=== PATIENT | female | born 1955 | race Caucasian/White ===

== ENCOUNTER 2018-08-21 08:42 | Outpatient (CLI) | payer BC ==
--- NOTE | 2018-08-21 09:44 | MMO ---
Bilateral MAMMO Bilat Screen [facility]. CLINICAL HISTORY: Patient is 62 years old and is seen for screening. The patient has no family history of breast cancer. The patient has a history of malignant (generic) in the left breast at age 52. The patient has a history of right Breast reduction in 2008. VIEWS: The views performed were: right craniocaudal and right mediolateral oblique. FILMS COMPARED: The present examination has been compared to prior imaging studies performed at [facility] on 09/13/2014 and 10/24/2015, and at [facility] on 01/13/2013. This study has been interpreted with the assistance of computer-aided detection. MAMMOGRAM FINDINGS: The breasts are heterogeneously dense, which could obscure a lesion on mammography. There are stable benign appearing calcifications seen in the right breast. There are no suspicious masses, suspicious calcifications, or new areas of architectural distortion. IMPRESSION: THERE IS NO MAMMOGRAPHIC EVIDENCE OF MALIGNANCY. A ROUTINE FOLLOW-UP MAMMOGRAM IN 1 YEAR IS RECOMMENDED. ACR BI-RADS Category 2 - Benign finding MAMMOGRAPHY NOTE: 1. A negative mammogram report should not delay a biopsy if a dominant of clinically suspicious mass is present. 2. Approximately 10% to 15% of breast cancers are not detected by mammography. 3. Adenosis and dense breasts may obscure an underlying neoplasm.
== END 2018-08-21 08:43 | disposition home or self-care (01) ==
LOC: SCSMAMMO 08:42
PROVIDERS: ATTEND Obstetrics & Gynecology
DX: Z12.31 Encounter for screening mammogram for malignant neoplasm of breast (principal); Z85.3 Personal history of malignant neoplasm of breast; Z98.890 Other specified postprocedural states
CPT/HCPCS: 77067

== ENCOUNTER 2019-04-21 05:29 | Observation (INO) | payer BC ==
[2019-04-21 06:05] LABS: #Basophils 0.1 thou/uL (0.0-0.2); #Eosinphils 0.2 thou/uL (0.0-0.7); #Lymphocytes 1.4 thou/uL (1.20-3.40); #Monocytes 0.4 thou/uL (0.11-0.59); #Neutrophils 6.7 thou/uL (1.40-6.50); %Basophils 0.6 % (0.0-1.0); %Eosinophils 2.6 % (0.0-10.0); %Monocytes 4.4 % (0.0-10.0); %Neutrophils 76.4 % (42.0-75.0); Hemoglobin 13.8 g/dL (12.0-16.0); Mean Corpuscular HGB CONC 33.8 g/dL (32.0-36.0); Mean Corpuscular Hemoglobin 33.3 pg (27.0-31.0); Mean Corpuscular Volume 98.5 fL (78.0-98.0); Mean Platelet Volume 7.3 fL (7.4-10.4); Platelet Count 234 thou/uL (130-400); RBC Distribution Width 11.2 % (11.5-14.5); Red Blood Cell (RBC) Count 4.14 mill/uL (4.20-5.40); White Blood Cell (WBC) Count 8.8 thou/uL (4.8-10.8)
[2019-04-21] MEDS ORDERED: Nitroglycerin 2% Ointment 1 INCH/1 GM Packet ONE (06:07)
[2019-04-21 06:28] LABS: ALT (SGPT) 10 U/L (8-55); AST (SGOT) 12 U/L (5-34); Albumin 4.4 g/dL (3.4-4.8); Alkaline Phosphatase 56 U/L (40-110); Anion Gap 13 mmol/L (10-20); BUN (Urea Nitrogen) 9 mg/dL (9.8-20.1); Bilirubin, Total 0.6 mg/dL (0.2-1.2); CK (CPK) 64 U/L (29-168); Calc. Creatinine Clearance 0 mL/min (70-130); Calcium 9.3 mg/dL (7.8-10.44); Carbon Dioxide 25 mmol/L (23-31); Chloride 109 mmol/L (98-107); Estimated GFR-MDRD 70; Glucose 109 mg/dL (80-115); Lipase 27 U/L (8-78); Potassium 4.1 mmol/L (3.5-5.1); Protein, Total 6.4 g/dL (6.0-8.3); Sodium 143 mmol/L (136-145)
--- NOTE | 2019-04-21 08:43 | RAD ---
CHEST 1 VIEW: HISTORY: Midsternal chest pain. COMPARISON: 05/19/2017. FINDINGS: There are some postoperative changes and minimal overall increased density in the left chest wall and overlying the left chest. Heart size is normal. The lungs are clear. IMPRESSION: No significant acute intrathoracic disease. No pneumonia, edema, or pleural effusion. POS: [facility]
[2019-04-21 09:13] LABS: Troponin I 0.014 ng/mL (< 0.028)
[2019-04-21] MEDS ORDERED: Acetaminophen 325 MG TAB PO PRN (09:18)
[2019-04-21] MEDS ORDERED: Nitroglycerin 0.4 MG TAB (25 Tab Bottle) PO PRN (09:43)
--- NOTE | 2019-04-21 09:58 | PDOC.HHP ---
Hospitalist HPI - History of Present Illness Chest pain History of Present Illness: PCP: Shannan Kincaid [facility] The patient is a 63/F with PMH significant for HTN, HLD, COPD, smoker and panic attacks that presents to the ER for the above complaint. Patient reports waking up to chest pain at 0300, located left chest, non radiating, describes as pressure, grade 2/10. Exacerbated by nothing, relieved by nothing. Reports associated SOB, light headedness and nausea. She said that this felt different than her typical panic attacks. She took ASA 325mg and called EMS. EMS administered Nitro SL x 2 which relieved her chest pain. She was brought to the ER. ED Course: EKG NSR with some ST and T wave abnormalities Trop negative CXR negative BNP 58.4 Given Nitropaste 1 inch chest wall Hospitalist ROS - Review of Systems Constitutional: denies: fever, chills, sweats, weakness, malaise, other Eyes: denies: pain, vision change, conjunctivae inflammation, eyelid inflammation, redness, other ENT: denies: ear pain, ear discharge, nose pain, nose discharge, nose congestion , mouth pain, mouth swelling, throat pain, throat swelling, other Respiratory: reports: shortness of breath. denies: cough, hemoptysis, sputum, wheezing Cardiovascular: reports: chest pain, light headedness. denies: palpitations, orthopnea, paroxysmal noc. dyspnea, edema Gastrointestinal: reports: nausea. denies: vomiting, abdominal pain, diarrhea Genitourinary: denies: dysuria, frequency, hematuria Skin: denies: rash, bruising Neurological: denies: weakness, numbness, incoordination, change in speech, confusion Hospitalist History - Past Medical History Source: patient Cardiac: reports: HTN, Hyperlipidemia Pulmonary: reports: COPD [employer]ER: reports: no pertinent history Gastrointestinal: reports: no pertinent history Heme/Onc: reports: no pertinent history Hepatobiliary: reports: no pertinent history Psych: reports: Anxiety (panic attacks) Musculoskeletal: reports: no pertinent history Rheumatologic: reports: no pertinent history Infectious Disease: reports: no pertinent history ENT: reports: no pertinent history Renal/: reports: no pertinent history Endocrine: reports: no pertinent history Dermatology: reports: no pertinent history - Past Surgical History Other Surgical History: Bilateral knee surgery, Back surgery x 2, hysterectomy, left mastectomy, tonsillectomy, tubal ligation. - Family History Family History: reports: cancer, diabetes mellitus, respiratory disorder - Social History Smoking Status: Current every day smoker Tobacco Type: cigarettes (1ppd > 40 years) Alcohol: reports: Heavy (Tori, 5 drinks per day) Drugs: reports: marijuana (occassionally) Living Situation: With Family (lives with father) Activity level: independent ambulation - Exam General Appearance: NAD, awake alert Neck: supple, no JVD, no thyromegaly, no lymphadenopathy Heart: RRR, no murmur, no gallops, no rubs, normal peripheral pulses Respiratory: CTAB, no wheezes, no rales, no ronchi Gastrointestinal: soft, non-tender, non-distended, normal bowel sounds, no guarding, no rigidity Extremities: no cyanosis, no clubbing, no edema Neurological: no focal deficits Musculoskeletal: normal tone, normal strength Psychiatric: normal affect, A&O x 3 Hospitalist Results - Labs Result Diagrams: 04/21/19 05:58 04/21/19 05:58 Lab results: WBC 8.8 thou/uL (4.8-10.8) 04/21/19 05:58 Hgb 13.8 g/dL (12.0-16.0) 04/21/19 05:58 Hct 40.8 % (36.0-47.0) 04/21/19 05:58 MCV 98.5 fL (78.0-98.0) H 04/21/19 05:58 Plt Count 234 thou/uL (130-400) 04/21/19 05:58 Neutrophils % 76.4 % (42.0-75.0) H 04/21/19 05:58 Sodium 143 mmol/L (136-145) 04/21/19 05:58 Potassium 4.1 mmol/L (3.5-5.1) 04/21/19 05:58 Chloride 109 mmol/L (98-107) H 04/21/19 05:58 Carbon Dioxide 25 mmol/L (23-31) 04/21/19 05:58 BUN 9 mg/dL (9.8-20.1) L 04/21/19 05:58 Creatinine 0.83 mg/dL (0.6-1.1) 04/21/19 05:58 Glucose 109 mg/dL (80-115) 04/21/19 05:58 Calcium 9.3 mg/dL (7.8-10.44) 04/21/19 05:58 Total Bilirubin 0.6 mg/dL (0.2-1.2) 04/21/19 05:58 AST 12 U/L (5-34) 04/21/19 05:58 ALT 10 U/L (8-55) 04/21/19 05:58 Alkaline Phosphatase 56 U/L (40-110) 04/21/19 05:58 Creatine Kinase 64 U/L (29-168) 04/21/19 05:58 Troponin I 0.014 ng/mL (< 0.028) 04/21/19 08:35 B-Natriuretic Peptide 58.4 pg/mL (0-100) 04/21/19 05:58 Serum Total Protein 6.4 g/dL (6.0-8.3) 04/21/19 05:58 Albumin 4.4 g/dL (3.4-4.8) 04/21/19 05:58 Lipase 27 U/L (8-78) 04/21/19 05:58 Laboratory Tests 04/21/19 04/21/19 04/21/19 05:58 05:58 08:35 Troponin I Less than 0.010 0.014 B-Natriuretic Peptide 58.4 - EKG Interpretation EKG: NSR with non specific ST and T wave abnormalities - Radiology Interpretation Chest x-ray Status: report reviewed by me Hospitalist H&P A/P - Plan Plan: Impression: Chest pain, r/o ACS HTN, chronic HLD, chronic Tobacco abuse COPD, chonic Anxiety, chronic 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
[2019-04-21 11:33] LABS: Cardiac Risk 3.1 (Less than 4.5)
[2019-04-21 12:34] LABS: Troponin I Less than 0.010 ng/mL (< 0.028)
[2019-04-21] MEDS ORDERED: Nitroglycerin 2% Ointment 1 INCH/1 GM Packet TOP SCH (14:00)
[2019-04-21 16:10] VITALS: BP 178/90; TEMP 98.2; BMI 23.9
--- NOTE | 2019-04-21 16:31 | NM ---
EXAM: NUCLEAR MEDICINE CARDIAC SPECT WITH EF AND WALL MOTION: 04/21/19 HISTORY: Chest pain. COPD. Hypertension. Dyslipidemia. Smoking history. Exercise Sestamibi study is performed. Patient was injected with 28.9 millicuries technetium 99m Sest amibi intravenously for stress images and 9.1 millicuries technetium 99m Sestamibi intravenously for resting images. Multiple SPECT images in the short axis, vertical long axis, and horizontal long axis demonstrates no scan evidence for infarct or ischemia. TID 0.92. LHR 0.43. EDV 76 mL. EF 76%. MYOCARDIAL PERFUSION WALL MOTION: Wall motion is normal. IMPRESSION: Normal cardiac SPECT with EF and wall motion. POS: [facility]
--- NOTE | 2019-04-21 18:40 | DIS ---
DATE OF ADMISSION: 04/21/2019 DATE OF DISCHARGE: 04/21/2019 PRIMARY CARE PROVIDER: Unknown. DISCHARGE DISPOSITION AND FOLLOWUP: The patient will be discharged home and follow up with primary care provider in 1 week. The patient was seen and examined on the day of discharge. Denies any new complaints. INPATIENT CONSULTATIONS: None. BRIEF CLINICAL COURSE: The patient is a 63-year-old female with past medical history significant for hypertension, hyperlipidemia, COPD, and tobacco abuse. She presents to the ER for chest pain. The patient developed acute onset of chest pain at home, called EMS, was given 2 sublingual nitroglycerin x2, which relieved her pain. She was brought to the ER. In the ER, EKG was performed. There was normal sinus rhythm and had some ST and T-wave abnormalities. Troponin was negative. Chest x-ray was negative for any acute cardiopulmonary process. BNP was 58.4. The patient was given nitro paste 1 inch on her chest wall and admitted into the hospital under observation. The patient underwent a nuclear medicine cardiac stress test. Myocardial perfusion wall motion was normal. EF was 76, impression normal cardiac SPECT with EF and wall motion. FINAL DIAGNOSES: 1. Chest pain, acute coronary syndrome ruled out. 2. Hypertension, chronic. 3. Hyperlipidemia, chronic. 4. Tobacco abuse. 5. Chronic obstructive pulmonary disease, chronic. 6. Anxiety, chronic. DISCHARGE MEDICATIONS: New medication Catapres 0.1 mg tablet, direction; 0.1 mg p.o. b.i.d., quantity 20 p.r.n. SBP greater than 180. The patient discharged on home medications, escitalopram 20 mg p.o. daily and losartan 25 mg p.o. daily. DISCHARGE INSTRUCTIONS: The patient was extensively counseled on blood pressure control. Acute coronary syndrome was ruled out. The patient is to follow up with PCP in the next week. Job ID: [id number] [facility]
--- NOTE | 2019-04-21 22:54 | PRG ---
DATE OF SERVICE: 04/21/2019 SUBJECTIVE: The patient is a 63-year-old female with hypertension, hyperlipidemia with ongoing tobacco abuse, presented to the emergency room with chest discomfort. The chest discomfort started around 3 a.m. It resolved after nitroglycerin. OBJECTIVE: VITAL SIGNS: Reviewed. GENERAL: She was monitored on the telemetry unit. LUNGS: Clear to auscultation bilaterally. HEART: S1, S2 present. Regular. ABDOMEN: Soft. LABORATORY DATA: Labs were reviewed. Troponins were negative. EKG showed sinus rhythm with nonspecific ST-T wave changes. Her BNP was 58.4. She underwent a Cardiolite stress test that was negative for reversible ischemia. She is chest pain free at this time. PLAN: Lifestyle modification including tobacco cessation was emphasized. She was given a prescription for clonidine on an as-needed basis. She will continue losartan. She was advised to follow up with the primary care physician. Please note, the patient is unable to tolerate statins. I agree with the note by the nurse practitioner, Jordi Badillo. Job ID: [id number]
[2019-04-22] MEDS ORDERED: Aspirin 81 mg Enteric Coated Tablet PO SCH (09:00)
== END 2019-04-21 17:53 | disposition home or self-care (01) ==
LOC: ERS 05:29 → ERHOLD 07:52 → 2SW 16:08
PROVIDERS: ADMIT Internal Medicine; ATTEND Internal Medicine
DX: R07.89 Other chest pain (principal); I10 Essential (primary) hypertension; E78.5 Hyperlipidemia, unspecified; F17.210 Nicotine dependence, cigarettes, uncomplicated; J44.9 Chronic obstructive pulmonary disease, unspecified; F41.0 Panic disorder [episodic paroxysmal anxiety]; Z79.899 Other long term (current) drug therapy; Z88.5 Allergy status to narcotic agent; Z88.8 Allergy status to other drugs, medicaments and biological substances
CPT/HCPCS: 36415; 71045; 78452; 80053; 80061; 82550; 83690; 83880; 84484; 85025; 93005; 93017; A9500; G0378

== ENCOUNTER 2019-11-11 07:36 | Outpatient (CLI) | payer BC, OTHER ==
[2019-11-11 14:41] LABS: BHCG - Serum Negative (NEGATIVE); Pregs Control Background? CLEAR/WHITE (CLR/WHITE); Pregs Control Bar Appear? YES (CONTROL BAR)
[2019-11-12 12:22] LABS: SARS-CoV-2 MS2 Positive; SARS-CoV-2 N Gene Negative; SARS-CoV-2 S Gene Negative; SARS-CoV-2 by NAA Not Detected (NotDetected); SARS-CoV-2 orf1ab Negative
--- NOTE | 2019-11-14 16:03 | EKG ---
Test Reason : PREOP Blood Pressure : / mmHG Vent. Rate : 064 BPM Atrial Rate : 064 BPM P-R Int : 148 ms QRS Dur : 074 ms QT Int : 426 ms P-R-T Axes : 069 -01 070 degrees QTc Int : 439 ms Normal sinus rhythm Normal ECG Confirmed by Cayden MULLER ([id number]) on 11/14/2019 4:02:53 PM Referred By: ABAD Confirmed By:Cayden MULLER
== END 2019-11-11 07:37 | disposition home or self-care (01) ==
LOC: LABBT 07:36
PROVIDERS: ATTEND Student in an Organized Health Care Education/Training Program
DX: Z01.818 Encounter for other preprocedural examination (principal); Z20.828 Contact with and (suspected) exposure to other viral communicable diseases; J02.9 Acute pharyngitis, unspecified; R49.0 Dysphonia; K13.79 Other lesions of oral mucosa
CPT/HCPCS: 84703; 85014; 87635; 93005; 93010; U0003

== ENCOUNTER 2022-05-30 18:29 | Emergency (ER) | payer OTHER ==
[2022-05-30 20:07] LABS: #Eosinphils 0.2 thou/uL (0.0-0.7); #Lymphocytes 2.3 thou/uL (1.20-3.40); #Monocytes 0.6 thou/uL (0.11-0.59); #Neutrophils 5.1 thou/uL (1.40-6.50); %Basophils 0.5 % (0.0-1.0); %Lymphocytes 28.3 % (21.0-51.0); %Monocytes 7.5 % (0.0-10.0); %Neutrophils 61.7 % (42.0-75.0); Mean Corpuscular HGB CONC 36.3 g/dL (32.0-36.0); Mean Corpuscular Hemoglobin 36.4 pg (27.0-31.0); Mean Platelet Volume 7.1 fL (7.4-10.4); Platelet Count 221 10x3/uL (130-400); Red Blood Cell (RBC) Count 3.84 mill/uL (4.20-5.40); White Blood Cell (WBC) Count 8.2 10x3/uL (4.8-10.8)
[2022-05-30] MEDS ORDERED: Cefepime 2 GM VIAL ONE (20:14)
[2022-05-30] MEDS ORDERED: Ketorolac Tromethamine 30 MG/ML VIAL ONE (20:14)
[2022-05-30 20:27] LABS: ALT (SGPT) 11 U/L (8-55); AST (SGOT) 17 U/L (5-34); Albumin 4.8 g/dL (3.4-4.8); Alkaline Phosphatase 68 U/L (40-110); Anion Gap 16 mmol/L (10-20); BUN (Urea Nitrogen) 7 mg/dL (9.8-20.1); Bilirubin, Total 0.7 mg/dL (0.2-1.2); Calc. Creatinine Clearance 0 mL/min (70-130); Calcium 9.9 mg/dL (7.8-10.44); Carbon Dioxide 22 mmol/L (23-31); Chloride 102 mmol/L (98-107); Estimated GFR 48; Globulin 2.6 g/dL (2.4-3.5); Glucose 101 mg/dL (80-115); Potassium 3.4 mmol/L (3.5-5.1); Protein, Total 7.4 g/dL (5.8-8.1); Sodium 137 mmol/L (136-145)
[2022-05-30] MEDS ORDERED: Vancomycin 1 GM/200 ML (FROZEN) BAG ONE (20:43)
== END 2022-05-30 22:15 | disposition home or self-care (01) ==
LOC: ERS 18:29
DX: L03.115 Cellulitis of right lower limb (principal); I10 Essential (primary) hypertension; F17.210 Nicotine dependence, cigarettes, uncomplicated
CPT/HCPCS: 36415; 80053; 83605; 85025; 85652; 87040; 96365; 96367; 96375; J0692; J1885; J3370-JW

== ENCOUNTER 2023-01-14 07:36 | Outpatient (CLI) | payer MEDICARE, OTHER | END 2023-01-14 07:37 | disposition home or self-care (01) | LOC: CT 07:36 | PROVIDERS: ATTEND Otolaryngology Plastic Surgery within the Head & Neck | DX: C04.9 Malignant neoplasm of floor of mouth, unspecified (principal) | CPT/HCPCS: 70491; 82565 ==

== ENCOUNTER 2023-01-17 10:15 | Outpatient (CLI) | payer MEDICARE | END 2023-01-17 10:16 | disposition home or self-care (01) | LOC: PET 10:15 | PROVIDERS: ATTEND Radiology Radiation Oncology | DX: C04.0 Malignant neoplasm of anterior floor of mouth (principal); R94.8 Abnormal results of function studies of other organs and systems | CPT/HCPCS: 78815; A9552 ==

== ENCOUNTER 2023-12-04 05:47 | Day surgery (SDC) | payer MEDICARE ==
[2023-12-02 12:54] VITALS: BMI 23.7
[2023-12-04] MEDS ORDERED: PROPOFOL 20 ML ONE ×2 (06:20→07:50)
[2023-12-04] MEDS ORDERED: fentaNYL 50 mcg/mL 1 mL Vial ONE (06:21)
[2023-12-04] MEDS ORDERED: Bacitracin Zinc Ointment 30 gm TUBE ONE (06:30)
[2023-12-04] MEDS ORDERED: Lidocaine 1% (PF) 30 ML VIAL ONE (06:30)
[2023-12-04] MEDS ORDERED: Sodium Chloride 0.9% 100 ML ONE (06:47)
[2023-12-04] MEDS ORDERED: CEFAZOLIN 2 GM VIAL ONE (06:47)
[2023-12-04] MEDS ORDERED: Lidocaine 1% PF 5 ML VIAL ONE (06:47)
[2023-12-04] MEDS ORDERED: Betamet Acet/Betamet Na Ph 30 MG/5 ML VIAL ONE (07:20)
[2023-12-04] MEDS ORDERED: Ondansetron PF 4 MG/2 ML Vial ONE (08:05)
[2023-12-04] MEDS ORDERED: Dexamethasone 4 mg/ml Vial ONE (08:05)
== END 2023-12-04 09:25 | disposition home or self-care (01) ==
LOC: SDC 05:47
PROVIDERS: ATTEND Orthopaedic Surgery
PROC: 01N54ZZ Release Median Nerve, Percutaneous Endoscopic Approach (ICD-10-PCS; principal; 2023-12-04)
PROC: 3E0233Z Introduction of Anti-inflammatory into Muscle, Percutaneous Approach (ICD-10-PCS; 2023-12-04)
DX: G56.01 Carpal tunnel syndrome, right upper limb (principal); M65.342 Trigger finger, left ring finger; M72.0 Palmar fascial fibromatosis [Dupuytren]; I10 Essential (primary) hypertension; E78.00 Pure hypercholesterolemia, unspecified; F41.9 Anxiety disorder, unspecified; Z79.899 Other long term (current) drug therapy
CPT/HCPCS: 20550; 29848; 93005; A6223; J0702; J1100; J2001; J2405; J2704; J3010; 93010